=== PATIENT | female | born 1955 | race Caucasian/White ===

== ENCOUNTER 2017-03-06 02:36 | Emergency (ER) | payer MEDICARE, MEDICAID ==
[~2017-03-06] VITALS: Ht 165.1 cm; Wt 107.5 kg
[2017-03-06 03:00] VITALS: BP 171/94
[2017-03-06 05:05] LABS: Basophils # (auto) 0 uL; Basophils % (auto) 0.2 % (0.0-2.0); CONDITION Y; DEFINITIVE SEE PRINTOUT; Eosinophils # (auto) 0 uL; Eosinophils % (auto) 0.1 % (0.0-7.0); Hemoglobin 14.3 g/dL (12.2-16.2); Lymphocytes # (auto) 4.6 uL; Lymphocytes % (auto) 24.2 % (10.0-50.0); Mean Corpuscular Hemoglobin 22.2 pg (28.0-32.0); Mean Corpuscular Hgb Conc. 31.8 g/dL (32.0-36.0); Mean Corpuscular Volume 69.7 fL (80.0-100.0); Mean Platelet Volume 8.8 fL (7.4-10.4); Monocytes # (auto) 1.1 uL; Monocytes % (auto) 5.7 % (0.0-12.0); Neutrophils # (auto) 13.4 uL; Neutrophils % (auto) 69.8 % (37.0-80.0); Platelet Count (auto) 399 10^3/uL (140-450); Red Cell Distribution Width 17.2 % (11.6-16.0); White Blood Cell 19.2 10^3/uL (4.4-10.8)
[2017-03-06 05:14] LABS: Albumin 3.4 g/dL (3.4-5.0); Calcium 8.8 mg/dL (8.5-10.1); Potassium 4.4 mmol/L (3.5-5.1)
[2017-03-06 05:16] LABS: Bilirubin, Total 0.3 mg/dL (0.2-1.0); Total Protein 7.6 g/dL (6.4-8.2)
[2017-03-06] MEDS ORDERED: cefTRIAXone SOD 1,000 MG VL IM ONE (05:30)
== END 2017-03-06 05:21 | disposition home or self-care (01) ==
LOC: ER 02:36
DX: L25.8 Unspecified contact dermatitis due to other agents (principal); T50.905A Adverse effect of unspecified drugs, medicaments and biological substances, initial encounter; E11.9 Type 2 diabetes mellitus without complications; I10 Essential (primary) hypertension; F17.210 Nicotine dependence, cigarettes, uncomplicated
CPT/HCPCS: 36415; 80053; 85025; 96372; 99284; J0696

== ENCOUNTER 2021-02-04 20:46 | Emergency (ER) | payer MEDICARE, MEDICAID ==
[~2021-02-04] VITALS: Ht 160 cm; Wt 116.6 kg
[2021-02-04 21:41] VITALS: BP 170/86
[2021-02-04] MEDS ORDERED: cloNIDine HCL 0.1 MG TAB PO ONE (22:15)
== END 2021-02-04 23:52 | disposition home or self-care (01) ==
LOC: ER 20:46
DX: I10 Essential (primary) hypertension (principal); E11.9 Type 2 diabetes mellitus without complications; E78.5 Hyperlipidemia, unspecified; F17.210 Nicotine dependence, cigarettes, uncomplicated; H93.13 Tinnitus, bilateral
CPT/HCPCS: 93005

== ENCOUNTER 2022-04-16 09:16 | Emergency (ER) | payer MEDICARE, MEDICAID ==
[~2022-04-16] VITALS: Ht 162.6 cm; Wt 111.4 kg
[2022-04-16] MEDS ORDERED: CEPH-510 PO (10:26)
[2022-04-16] MEDS ORDERED: TRIA0.02 TOP (10:26)
[2022-04-16 10:27] VITALS: BP 165/70
== END 2022-04-16 10:37 | disposition home or self-care (01) ==
LOC: ER 09:16
DX: S80.862A Insect bite (nonvenomous), left lower leg, initial encounter (principal); S80.861A Insect bite (nonvenomous), right lower leg, initial encounter; S30.860A Insect bite (nonvenomous) of lower back and pelvis, initial encounter; W57.XXXA Bitten or stung by nonvenomous insect and other nonvenomous arthropods, initial encounter; Y93.89 Activity, other specified; Y92.89 Other specified places as the place of occurrence of the external cause; Y99.8 Other external cause status

== ENCOUNTER 2023-09-21 05:58 | Emergency (ER) | payer MEDICARE, MEDICAID ==
[~2023-09-21] VITALS: Ht 160 cm; Wt 100.0 kg
[~2023-09-21 05:58] MED LIST: CEPH-510 PO; TRIA0.02 TOP
[2023-09-21 07:35] LABS: Basophils # (auto) 0.1 10 ^3/uL (0-0.2); Eosinophils # (auto) 0.5 10 ^3/uL (0-0.8); Hemoglobin 12.7 g/dL (12.2-16.2); Lymphocytes # (auto) 3.1 10 ^3/uL (0.4-5.4); Mean Corpuscular Volume 69.6 fL (80.0-100.0); Monocytes # (auto) 0.6 10 ^3/uL (0-1.3)
[2023-09-21 07:36] LABS: Chloride 111 mmol/L (98-107); Potassium 4.6 mmol/L (3.5-5.1); Sodium 143 mmol/L (136-145)
[2023-09-21 07:37] LABS: Anion Gap 6 (5-15); Calcium 9.8 mg/dL (8.5-10.1); Carbon Dioxide 26 mmol/L (20-30)
[2023-09-21 07:39] LABS: Basophils % (auto) 0.8 % (0.0-2.0); Eosinophils % (auto) 5.6 % (0.0-7.0); Hematocrit 41.1 % (36.0-46.0); Lymphocytes % (auto) 35.1 % (10.0-50.0); Mean Corpuscular Hemoglobin 21.6 pg (28.0-32.0); Monocytes % (auto) 7.1 % (0.0-12.0); Neutrophils # (auto) 4.6 10 ^3/uL (1.6-8.6); Neutrophils % (auto) 51.4 % (37.0-80.0); Red Cell Distribution Width 17.6 % (11.8-14.3); White Blood Cell 8.9 10^3/uL (4.4-10.8)
[2023-09-21] MEDS: cloNIDine HCL 0.1 MG TAB PO ONE (07:39)
[2023-09-21 07:42] LABS: BUN/Creatinine Ratio 21.8 (10.0-20.0); Blood Urea Nitrogen 17 mg/dL (9-23); Glucose 107 mg/dL (74-106)
[2023-09-21 08:39] VITALS: BP 150/70; PULSE 70; RESP 18; TEMP 98.4; O2SAT 96
== END 2023-09-21 08:39 | disposition home or self-care (01) ==
LOC: ER 05:58
DX: I10 Essential (primary) hypertension (principal); E11.9 Type 2 diabetes mellitus without complications; E78.5 Hyperlipidemia, unspecified; F17.210 Nicotine dependence, cigarettes, uncomplicated; Z86.2 Personal history of diseases of the blood and blood-forming organs and certain disorders involving the immune mechanism; Z79.899 Other long term (current) drug therapy
CPT/HCPCS: 36415; 80048; 84484; 85025; 93005